=== PATIENT | female | born 1980 | race Caucasian/White ===

== ENCOUNTER 2018-01-25 07:43 | Emergency (ER) | payer MEDICAID, SELFPAY ==
--- NOTE | 2018-01-25 09:20 | CT ---
NONCONTRAST CT HEAD: DATE: 01/25/18. HISTORY: Head pain after a fall 5 days ago. Bruise to right eye. COMPARISON: None available. FINDINGS: There is no evidence of a hemorrhage, acute infarction, mass effect, or midline shift. Ventricular s ystem is normal in size, shape, and position. Calvarial structures are intact, and no depressed calv arial fracture is seen. Visualized paranasal sinuses and mastoid air cells are clear. IMPRESSION: No acute intracranial abnormality is demonstrated. POS: [facility]
--- NOTE | 2018-01-25 09:26 | CT ---
NONCONTRAST CT FACIAL BONES: Date: 01-25-18 History: Blow to right face after a fall 5 days ago. Bruised. Comparison: None. FINDINGS: There is no evidence of a facial bone fracture. Paranasal sinuses and mastoid air cells are clear. Te mporomandibular joints are normally located. There are a few minimal periapical lucencies surrounding a few right maxillary molars suggesting periapical abscesses. Most posterior molar is also irregular with lucency present within the molar which may represent a dental caries. The orbits are normal and symmetric bilaterally. No post septal hematoma or stranding is present. The re is minimal soft tissue swelling in the right supraorbital location. IMPRESSION: No CT evidence of a facial bone fracture. POS: [facility]
== END 2018-01-25 09:00 | disposition home or self-care (01) ==
LOC: MADERS 07:43
DX: S00.83XA Contusion of other part of head, initial encounter (principal); Z79.899 Other long term (current) drug therapy; W19.XXXA Unspecified fall, initial encounter
CPT/HCPCS: 70450; 70486

== ENCOUNTER 2025-08-23 14:31 | Emergency (ER) | payer SELFPAY | END 2025-08-23 15:10 | disposition home or self-care (01) | LOC: MADERS 14:31 | DX: I10 Essential (primary) hypertension (principal); F41.9 Anxiety disorder, unspecified; R29.700 NIHSS score 0 | CPT/HCPCS: 99283 ==